=== PATIENT | female | born 1985 | race Caucasian/White ===

== ENCOUNTER 2021-01-20 00:43 | Inpatient (IN) | payer OTHER ==
[~2021-01-20] VITALS: Ht 162.6 cm; Wt 88.0 kg
[2021-01-20] MEDS ORDERED: TERBUTALINE 1 MG/ML, 1ML IVPush PRN (22:30)
[2021-01-20] MEDS ORDERED: FENTANYL PF 100 MCG/2ML IV PRN (22:30)
[2021-01-20] MEDS ORDERED: FENTANYL PF 100 MCG/2ML IVPush PRN (22:30)
[2021-01-20] MEDS ORDERED: OXYTOCIN 30U/ 0.9% NaCL 500ML 500 ML IV ONE (22:30)
[2021-01-20] MEDS ORDERED: OXYTOCIN 30U/ 0.9% NaCL 500ML 500 ML IV PRN (22:30)
[2021-01-20] MEDS ORDERED: TERBUTALINE 1 MG/ML, 1ML SQ PRN (22:30)
[2021-01-20] MEDS ORDERED: SODIUM CITRATE/CITRIC ACID 30 ML UDC PO PRN (22:30)
[2021-01-20] MEDS ORDERED: CALCIUM CARBONATE 500 MG TAB.CHEW PO PRN (22:30)
[2021-01-20] MEDS ORDERED: D5%-LACTATED RINGERS 1,000 ML IV SCH (22:30)
[2021-01-20] MEDS ORDERED: ONDANSETRON 2MG/ML, 2ML IVPush PRN (22:30)
[2021-01-20] MEDS ORDERED: MISOPROSTOL 25 MCG TABLET ONE (22:34)
[2021-01-20] MEDS ORDERED: LIDOCAINE 1%, 20ML ONE (22:34)
[2021-01-20] MEDS ORDERED: MISOPROSTOL 200 MCG TABLET ONE (22:34)
[2021-01-20] MEDS ORDERED: NEWBORN KIT ONE (22:34)
[2021-01-20] MEDS ORDERED: OXYTOCIN 30U/ 0.9% NaCL 500ML 500 ML ONE (22:34)
[2021-01-20] MEDS ORDERED: PLEASE ENTER ALLERGIES MC SCH (23:00)
[2021-01-20 23:06] LABS: BASOPHILS % (AUTO) 0 % (0-1); EOSINOPHILS % (AUTO) 1 % (1-7); LYMPHOCYTES % (AUTO) 21 % (22-44); MEAN CORPUSCULAR HGB CONC 34.6 g/dL (32.4-35.8); MEAN PLATELET VOLUME 8.2 fL (7.4-10.4); MONOCYTES % (AUTO) 5 % (2-9); NEUTROPHILS % (AUTO) 72 % (42-75); PLATELET COUNT 206 x10^3/uL (130-400); RED BLOOD COUNT 3.97 x10^6/uL (3.82-5.3); RED CELL DISTRIBUTION WIDTH 13.9 % (9.6-15.2)
[2021-01-20 23:11] LABS: MD NO
[2021-01-21] MEDS: MISOPROSTOL 25 MCG TABLET VG PRN ×2 (00:44→05:28)
[2021-01-21] MEDS: LACTATED RINGERS 1,000 ML IV SCH ×5 (00:45→21:30)
[2021-01-21] MEDS: LEVOTHYROXINE 25 MCG TABLET PO SCH (07:12)
[2021-01-21] MEDS ORDERED: FENTANYL/BUPIV./NS/PF 250 ML EPIDCONT ONE (07:15)
[2021-01-21] MEDS ORDERED: BUPIVACAINE 0.25% ONE (07:15)
[2021-01-21] MEDS ORDERED: EPHEDRINE 50 MG/ML, 1ML IVPush PRN (13:30)
[2021-01-21] MEDS: FENTANYL/BUPIV./NS/PF 250 ML EPIDCONT SCH (13:30)
[2021-01-21] MEDS ORDERED: LACTATED RINGERS 1,000 ML IVBOLUS PRN (13:30)
[2021-01-21] MEDS ORDERED: IBUPROFEN 600 MG TABLET ONE (16:43)
[2021-01-21] MEDS ORDERED: ONDANSETRON 2MG/ML, 2ML IV PRN (17:00)
[2021-01-21] MEDS ORDERED: IBUPROFEN 800 MG TABLET PO PRN (17:00)
[2021-01-21] MEDS ORDERED: TRANEXAMIC ACID 1,000 MG in SODIUM CHLORIDE 0.9% 100 ML IVPB ONE (17:00)
[2021-01-21] MEDS ORDERED: METHYLERGONOVINE 0.2 MG/ML IM PRN (17:00)
[2021-01-21] MEDS ORDERED: IBUPROFEN 200 MG TABLET PO PRN (17:00)
[2021-01-21] MEDS ORDERED: CARBOPROST TROMETHAMINE 250 MCG/ML, 1ML IM PRN (17:00)
[2021-01-21] MEDS: OXYTOCIN 30U/ 0.9% NaCL 500ML 500 ML IV SCH (17:00)
[2021-01-21] MEDS ORDERED: MISOPROSTOL 200 MCG TABLET PR PRN (17:00)
[2021-01-21] MEDS ORDERED: SIMETHICONE 80 MG CHEW TAB PO PRN (17:00)
[2021-01-21] MEDS ORDERED: OXYcodone/APAP 5/325MG TABLET PO PRN ×2 (17:00)
[2021-01-21 20:00] VITALS: BP 93/59
[2021-01-21] MEDS ORDERED: ACETAMINOPHEN 325 MG TABLET ONE (20:28)
[2021-01-21] MEDS: ACETAMINOPHEN 325 MG TABLET PO PRN (20:30)
[2021-01-21] MEDS: IBUPROFEN 600 MG TABLET PO PRN (23:08)
[2021-01-21] MEDS: DOCUSATE 100 MG CAPSULE PO PRN (23:09)
[2021-01-22 00:02] VITALS: BP 91/58
[2021-01-22 00:50] LABS: BASOPHILS % (AUTO) 0 % (0-1); EOSINOPHILS % (AUTO) 0 % (1-7); LYMPHOCYTES % (AUTO) 13 % (22-44); MEAN CORPUSCULAR HEMOGLOBIN 28.7 pg (27.0-34.8); MEAN PLATELET VOLUME 8.1 fL (7.4-10.4); MONOCYTES % (AUTO) 5 % (2-9); NEUTROPHILS % (AUTO) 82 % (42-75); PLATELET COUNT 157 x10^3/uL (130-400); RED BLOOD COUNT 3.32 x10^6/uL (3.82-5.3); RED CELL DISTRIBUTION WIDTH 13.7 % (9.6-15.2)
[2021-01-22 00:51] LABS: MD NO
[2021-01-22] MEDS: ACETAMINOPHEN 325 MG TABLET PO PRN ×4 (01:11→14:30)
[2021-01-22] MEDS: OXYTOCIN 30U/ 0.9% NaCL 500ML 500 ML IV SCH ×2 (03:00→13:00)
[2021-01-22 04:32] VITALS: BP 95/65
[2021-01-22] MEDS: LACTATED RINGERS 1,000 ML IV SCH ×2 (04:37→13:30)
[2021-01-22] MEDS: IBUPROFEN 600 MG TABLET PO PRN ×2 (05:34→12:00)
[2021-01-22] MEDS: LEVOTHYROXINE 25 MCG TABLET PO SCH (05:35)
[2021-01-22] MEDS ORDERED: IBUP-1222 PO (06:11)
[2021-01-22 07:45] VITALS: BP 104/68
[2021-01-22] MEDS: DOCUSATE 100 MG CAPSULE PO PRN (07:51)
[2021-01-22] MEDS ORDERED: PRENATAL VIT/IRON/FA 1 EACH TABLET PO SCH (09:00)
[2021-01-22 11:45] VITALS: BP 95/64
[2021-01-22] MEDS: FENTANYL/BUPIV./NS/PF 250 ML EPIDCONT SCH (13:30)
== END 2021-01-22 17:40 | disposition home or self-care (01) | DRG 807 ==
LOC: LDIP 21:52 → 2NW 01-21 19:39
PROVIDERS: ADMIT Obstetrics & Gynecology; ATTEND Obstetrics & Gynecology
PROC: 10E0XZZ Delivery of Products of Conception, External Approach (ICD-10-PCS; principal; 2021-01-21)
PROC: 0KQM0ZZ Repair Perineum Muscle, Open Approach (ICD-10-PCS; 2021-01-21)
PROC: 10907ZC Drainage of Amniotic Fluid, Therapeutic from Products of Conception, Via Natural or Artificial Opening (ICD-10-PCS; 2021-01-21)
DX: O48.0 Post-term pregnancy (principal); Z37.0 Single live birth; Z20.822 Contact with and (suspected) exposure to COVID-19; E03.9 Hypothyroidism, unspecified; O99.284 Endocrine, nutritional and metabolic diseases complicating childbirth; Z90.49 Acquired absence of other specified parts of digestive tract; Z88.0 Allergy status to penicillin; Z3A.39 39 weeks gestation of pregnancy; O70.1 Second degree perineal laceration during delivery
CPT/HCPCS: 36415; 85025; 86592; 86850; 86900; 87635; G0378; J2405; J3010; J2590; J7120